=== PATIENT | female | born 1980 | race Caucasian/White ===

== ENCOUNTER 2017-02-01 03:02 | Emergency (ER) | payer SELFPAY ==
[~2017-02-01] VITALS: Ht 167.6 cm; Wt 77.9 kg
[2017-02-01 03:26] LABS: HEMATOCRIT 41.2 % (36.0-46.0); MCH 30.8 PG (29.0-34.0); MCHC 33.7 G/DL (30.0-36.0); MCV 91.2 FL (83-99); MEAN PLAT.VOLUME 9.1 uM^3 (9.5-12.4); PLATELET COUNT 257 K/uL (156-360); RBC DIS.WIDTH-CV 12.5 % (11.8-14.6); RBC DIS.WIDTH-SD 41.4 % (39-53); RED BLOOD COUNT 4.52 M/uL (3.80-5.20); WHITE BLOOD COUNT 9.4 K/uL (4.1-10.2)
[2017-02-01 03:39] LABS: CHLORIDE 98 mEq/L (99-109); POTASSIUM 3.8 mEq/L (3.7-5.4); SODIUM 135 mEq/L (136-147)
[2017-02-01 03:42] LABS: GLUCOSE 150 mg/dL (70-99)
[2017-02-01 03:43] LABS: ANION GAP 11 MEQ/L (2-14)
[2017-02-01 03:44] LABS: TOTAL BILIRUBIN 1.1 mg/dL (0.0-1.0)
[2017-02-01 03:45] LABS: ALKALINE PHOSPHATASE 58 IU/L (3-129); GFR ESTIMATE (CALCULATED) > 59 mL/min/
[2017-02-01 03:46] LABS: UREA NITROGEN (BUN) 9 mg/dL (9-23)
[2017-02-01 03:54] LABS: QUANTITATIVE HCG < 4.0 MIU/ML
[2017-02-01 05:18] LABS: ADD MIUA? YES; BILIRUBIN NEGATIVE; BLOOD NEGATIVE; COLOR YELLOW ((YELLOW)); GLUCOSE (STRIP) NEGATIVE; KETONES NEGATIVE; LEUKOCYTES NEGATIVE; NITRITE NEGATIVE; PROTEIN (STRIP) NEGATIVE; SPECIFIC GRAVITY 1.024 (1.000-1.030)
[2017-02-01 05:27] LABS: BACTERIA RARE /HPF; EPITHELIAL CELLS 2+ /HPF; MUCUS 1+ /LPF; RED BLOOD CELLS 0-5 /HPF (0-5); UCUL ADDED? NO; WHITE BLOOD CELLS 0-5 /HPF (0-5)
[2017-02-01] MEDS ORDERED: NORCO 5/3251 TABLET PO (06:15)
[2017-02-01] MEDS ORDERED: ZOFRAN8 MG PO (06:15)
[2017-02-01] MEDS ORDERED: NARCAN4 MG NS (06:20)
[2017-02-01 06:33] VITALS: BP 118/88
[2017-02-01 13:46] LABS: CHLAMYDIA TRACHOMATIS NEGATIVE; NEISSERIA GONORRHOEAE NEGATIVE
== END 2017-02-01 06:42 | disposition home or self-care (01) ==
LOC: EME 03:02
PROVIDERS: Emergency Medicine
DX: R10.33 Periumbilical pain (principal); N94.10 Unspecified dyspareunia; R94.5 Abnormal results of liver function studies; K43.9 Ventral hernia without obstruction or gangrene; J45.909 Unspecified asthma, uncomplicated; F32.9 Major depressive disorder, single episode, unspecified; F17.200 Nicotine dependence, unspecified, uncomplicated; F19.10 Other psychoactive substance abuse, uncomplicated
CPT/HCPCS: 74177; 80053; 81003; 83605; 84702; 85027; 87040; 87210; 87491; 87591; 99281; 99285; J1885; J7030